=== PATIENT | male | born 1945 | race Caucasian/White ===

== ENCOUNTER 2023-09-21 16:15 | Observation (INO) | payer MEDICARE ==
--- NOTE | 2023-09-21 16:47 | ED ---
General Adult HPI - General Chief complaint: Fall Stated complaint: Fall-Head Injury,Dizziness Time Seen by Provider: 09/21/23 16:17 Source: patient, EMS, RN notes reviewed Mode of arrival: EMS Limitations: no limitations - History of Present Illness Initial comments: Patient is a 78-year-old male present to the emergency department following syncopal episode. Episode occurred prior to arrival. Patient got up and use the restroom. Following this patient was walking out of the restroom when he did have a syncopal episode. Patient believes he was only unresponsive for a couple seconds. Patient did sustain an abrasion to his upper lip. No headache or neck pain. No confusion. No chest pain or dyspnea. No abdominal or back pain. No history of similar symptoms previously. - Related Data Home Medications Medication Instructions Recorded Confirmed lisinopriL [Zestril] 5 mg PO DAILY 09/01/14 09/01/14 Allergies Allergy/AdvReac Type Severity Reaction Status Date / Time No Known Allergies Allergy Verified 09/21/23 16:26 Review of Systems ROS Statement: Those systems with pertinent positive or pertinent negative responses have been documented in the HPI. ROS Other: All systems not noted in ROS Statement are negative. Constitutional: Denies: fever Eyes: Denies: eye pain ENT: Denies: ear pain Respiratory: Denies: cough, dyspnea Cardiovascular: Denies: chest pain Gastrointestinal: Denies: abdominal pain Musculoskeletal: Denies: back pain Past Medical History Past Medical History: Diabetes Mellitus, Hypertension History of Any Multi-Drug Resistant Organisms: None Reported Past Surgical History: No Surgical Hx Reported Past Anesthesia/Blood Transfusion Reactions: Unable to Obtain Additional Past Anesthesia/Blood Transfusion Reaction / Comment(s): pt. has no surgical history Past Psychological History: No Psychological Hx Reported Past Alcohol Use History: Rare Past Drug Use History: None Reported - Past Family History Father Family Medical History: Cancer Additional Family Medical History / Comment(s): prostate cancer Mother Additional Family Medical History / Comment(s): mother of old age at 94 General Exam Limitations: no limitations General appearance: alert, in no apparent distress Head exam: Present: normocephalic Eye exam: Present: EOMI, other (Abnormal pupil on the right which patient states is chronic from previous cataract surgery.) ENT exam: Present: normal oropharynx Neck exam: Present: normal inspection Respiratory exam: Present: normal lung sounds bilaterally Cardiovascular Exam: Present: regular rate, normal rhythm GI/Abdominal exam: Present: soft. Absent: tenderness Extremities exam: Present: normal inspection Neurological exam: Present: alert Psychiatric exam: Present: normal affect, normal mood Skin exam: Present: other (Upper lip with internal laceration 0.5 cm.) Course Vital Signs 09/21/23 09/21/23 16:24 18:16 Temperature 98.1 F 99.2 F Pulse Rate 84 78 Respiratory 18 18 Rate Blood Pressure 134/67 126/70 O2 Sat by Pulse 97 96 Oximetry EKG Findings - EKG Results: EKG: interpreted by ERMD, sinus rhythm, normal axis, normal QRS, normal ST/T Medical Decision Making - Medical Decision Making Was pt. sent in by a medical professional or institution (, PA, AUDIT LEAD, urgent care, hospital, or [facility]...) When possible be specific @ -No Did you speak to anyone other than the patient for history (EMS, parent, family, police, friend...)? What history was obtained from this source @ -No Did you review nursing and triage notes (agree or disagree)? Why? @ -I reviewed and agree with nursing and triage notes Were old charts reviewed (outside hosp., previous admission, EMS record, old EKG, old radiological studies, urgent care reports/EKG's, [facility] records)? Report findings @ -No old charts were reviewed Differential Diagnosis (chest pain, altered mental status, abdominal pain women, abdominal pain men, vaginal bleeding, weakness, fever, dyspnea, syncope, headache, dizziness, GI bleed, back pain, seizure, CVA, palpatations, mental health, musculoskeletal)? @ -Differential Syncope: Valvular disease, hypertrophic cardiomyopathy, pulmonary embolism, tamponade, tachycardia, bradycardia, LA, hypovolemia, hemorrhage, dissection, anemia, intracranial hemorrhage, seizure, hypoglycemia, carbon monoxide poisoning, this is not meant to be an all-inclusive list. EKG interpreted by me (3pts min.). @ -As above X-rays interpreted by me (1pt min.). @ -Chest x-ray shows no acute process CT interpreted by me (1pt min.). @ -CT scan of the brain shows no atrophy U/S interpreted by me (1pt. min.). @ -None done What testing was considered but not performed or refused? (CT, X-rays, U/S, labs)? Why? @ -None What meds were considered but not given or refused? Why? @ -None Did you discuss the management of the patient with other professionals (professionals i.e. , PA, AUDIT LEAD, lab, RT, psych nurse, web content & social media manager, deodorizer operator, teacher, seismology technical officer, case reviewer)? Give summary @ -Sound physician Dr. Jacob, will admit covering Dr. Chung Was smoking cessation discussed for >3mins.? @ -No Was critical care preformed (if so, how long)? @ -No Were there social determinants of health that impacted care today? How? (Homelessness, low income, unemployed, alcoholism, drug addiction, transportation, low edu. Level, literacy, decrease access to med. care, halfway, rehab)? @ -No Was there de-escalation of care discussed even if they declined (Discuss DNR or withdrawal of care, Hospice)? DNR status @ -No What co-morbidities impacted this encounter? (DM, HTN, Smoking, COPD, CAD, Cancer, CVA, ARF, Chemo, Hep., AIDS, mental health diagnosis, sleep apnea, morbid obesity)? @ -None Was patient admitted / discharged? Hospital course, mention meds given and route, prescriptions, significant lab abnormalities, going to OR and other pertinent info. @ -Patient reevaluated. Patient is feeling somewhat dizzy. Patient and family are updated on results and plan. Patient will be admitted. Admission orders written. Undiagnosed new problem with uncertain prognosis? @ -No Drug Therapy requiring intensive monitoring for toxicity (Heparin, Nitro, Insulin, Cardizem)? @ -No Were any procedures done? @ -No Diagnosis/symptom? @ -Syncope, hyponatremia Acute, or Chronic, or Acute on Chronic? @ -Acute, acute Uncomplicated (without systemic symptoms) or Complicated (systemic symptoms)? @ -Default Side effects of treatment? @ -No Exacerbation, Progression, or Severe Exacerbation? @ -No Poses a threat to life or bodily function? How? (Chest pain, USA, LA, pneumonia, PE, COPD, DKA, ARF, appy, cholecystitis, CVA, Diverticulitis, Homicidal, Suicidal, threat to staff... and all critical care pts) @ -No - Lab Data Result diagrams: 09/21/23 17:12 09/21/23 17:12 Lab Results 09/21/23 09/21/23 09/21/23 Range/Units 17:12 17:12 17:12 WBC 16.6 H (3.8-10.6) k/uL RBC 5.31 (4.30-5.90) m/uL Hgb 15.7 (13.0-17.5) gm/dL Hct 47.1 (39.0-53.0) % MCV 88.8 (80.0-100.0) fL MCH 29.5 (25.0-35.0) pg MCHC 33.2 (31.0-37.0) g/dL RDW 13.2 (11.5-15.5) % Plt Count 292 (150-450) k/uL MPV 7.9 Neutrophils % 91 % Lymphocytes % 4 % Monocytes % 4 % Eosinophils % 1 % Basophils % 0 % Neutrophils # 15.0 H (1.3-7.7) k/uL Lymphocytes # 0.6 L (1.0-4.8) k/uL Monocytes # 0.6 (0-1.0) k/uL Eosinophils # 0.1 (0-0.7) k/uL Basophils # 0.1 (0-0.2) k/uL PT 10.5 (10.0-12.5) sec INR 0.9 (<1.2) APTT 21.4 L (22.0-30.0) sec Sodium 130 L (137-145) mmol/L Potassium 4.8 (3.5-5.1) mmol/L Chloride 96 L (98-107) mmol/L Carbon Dioxide 24 (22-30) mmol/L Anion Gap 10 mmol/L BUN 14 (9-20) mg/dL Creatinine 0.72 (0.66-1.25) mg/dL Est GFR (CKD-EPI)AfAm >90 (>60 ml/min/1.73 sqM) Est GFR (CKD-EPI)NonAf >90 (>60 ml/min/1.73 sqM) Glucose 139 H (74-99) mg/dL Calcium 9.5 (8.4-10.2) mg/dL Magnesium 1.6 (1.6-2.3) mg/dL Total Bilirubin 0.8 (0.2-1.3) mg/dL AST 26 (17-59) U/L ALT 23 (4-49) U/L Alkaline Phosphatase 64 (38-126) U/L Troponin I (0.000-0.034) ng/mL Total Protein 7.1 (6.3-8.2) g/dL Albumin 4.3 (3.5-5.0) g/dL 09/21/23 Range/Units 17:12 WBC (3.8-10.6) k/uL RBC (4.30-5.90) m/uL Hgb (13.0-17.5) gm/dL Hct (39.0-53.0) % MCV (80.0-100.0) fL MCH (25.0-35.0) pg MCHC (31.0-37.0) g/dL RDW (11.5-15.5) % Plt Count (150-450) k/uL MPV Neutrophils % % Lymphocytes % % Monocytes % % Eosinophils % % Basophils % % Neutrophils # (1.3-7.7) k/uL Lymphocytes # (1.0-4.8) k/uL Monocytes # (0-1.0) k/uL Eosinophils # (0-0.7) k/uL Basophils # (0-0.2) k/uL PT (10.0-12.5) sec INR (<1.2) APTT (22.0-30.0) sec Sodium (137-145) mmol/L Potassium (3.5-5.1) mmol/L Chloride (98-107) mmol/L Carbon Dioxide (22-30) mmol/L Anion Gap mmol/L BUN (9-20) mg/dL Creatinine (0.66-1.25) mg/dL Est GFR (CKD-EPI)AfAm (>60 ml/min/1.73 sqM) Est GFR (CKD-EPI)NonAf (>60 ml/min/1.73 sqM) Glucose (74-99) mg/dL Calcium (8.4-10.2) mg/dL Magnesium (1.6-2.3) mg/dL Total Bilirubin (0.2-1.3) mg/dL AST (17-59) U/L ALT (4-49) U/L Alkaline Phosphatase (38-126) U/L Troponin I <0.012 (0.000-0.034) ng/mL Total Protein (6.3-8.2) g/dL Albumin (3.5-5.0) g/dL Disposition Clinical Impression: Syncope, Hyponatremia Disposition: ADMITTED IP TO THIS HOSP Is patient prescribed a controlled substance at d/c from ED?: No Time of Disposition: 19:59
[2023-09-21] MEDS: DIPH,PERTUS(ACELL)TETVAC-LF 0.5 ML VIAL IM ONE (17:17)
[2023-09-21 17:41] LABS: Basophils # (A) 0.1 k/uL (0-0.2); Basophils % (A) 0 %; Eosinophils # (A) 0.1 k/uL (0-0.7); Eosinophils % (A) 1 %; HCT 47.1 % (39.0-53.0); HGB 15.7 gm/dL (13.0-17.5); Lymphocytes # (A) 0.6 k/uL (1.0-4.8); Lymphocytes % (A) 4 %; MCH 29.5 pg (25.0-35.0); MCHC 33.2 g/dL (31.0-37.0); MCV 88.8 fL (80.0-100.0); Mean Platelet Volume 7.9; Monocytes # (A) 0.6 k/uL (0-1.0); Monocytes % (A) 4 %; Neutrophils % (A) 91 %; Platelet Count 292 k/uL (150-450); RBC 5.31 m/uL (4.30-5.90); RDW 13.2 % (11.5-15.5); WBC 16.6 k/uL (3.8-10.6)
[2023-09-21 17:54] LABS: INR 0.9 (<1.2); Prothrombin Time 10.5 sec (10.0-12.5)
--- NOTE | 2023-09-21 17:55 | CT ---
EXAMINATION TYPE: CT brain wo con DATE OF EXAM: 09/21/2023 COMPARISON: 09/01/2014 INDICATION: syncope/hit face on floor DLP: 1162.8 mGycm, Automated exposure control for dose reduction was used. CONTRAST: None CT of the brain is performed utilizing 3 mm thick sections through the posterior fossa and 3 mm thick sections through the remaining calvarium. Study is performed within 24 hours of arrival to the hosp ital. No abnormal hyperdensity is present to suggest an acute intracranial hemorrhage. No mass lesion is evident. No acute infarcts are evident. Ventricles and sulci are prominent for the patient age. Paranasal sinuses and mastoid air cells within the [id number] are clear. No acute fractures are evident. Maxillary spine is intact. Nasal bones are intact. IMPRESSION: 1. Atrophy. Follow-up MRI can be performed as clinically indicated
[2023-09-21 17:57] LABS: Partial Thromboplastin Time 21.4 sec (22.0-30.0)
--- NOTE | 2023-09-21 17:59 | XR ---
EXAMINATION TYPE: XR chest 2V DATE OF EXAM: 09/21/2023 COMPARISON: 09/01/2014 INDICATION: Syncope fall TECHNIQUE: Frontal and lateral views of the chest are obtained. FINDINGS: The heart size is normal. The pulmonary vasculature is normal. The lungs are clear. No pneumothorax evident. IMPRESSION: 1. No acute pulmonary process.
[2023-09-21 18:10] LABS: ALT 23 U/L (4-49); African American GFR (CKD) >90 (>60 ml/min/1.73 sqM); Albumin 4.3 g/dL (3.5-5.0); Anion Gap 10 mmol/L; Blood Urea Nitrogen 14 mg/dL (9-20); Calcium 9.5 mg/dL (8.4-10.2); Carbon Dioxide 24 mmol/L (22-30); Chloride 96 mmol/L (98-107); Glucose 139 mg/dL (74-99); Non-African American GFR(CKD) >90 (>60 ml/min/1.73 sqM); Sodium 130 mmol/L (137-145); Total Bilirubin 0.8 mg/dL (0.2-1.3); Total Protein 7.1 g/dL (6.3-8.2)
[2023-09-21 18:15] LABS: AST 26 U/L (17-59); Alkaline Phosphatase 64 U/L (38-126); Potassium 4.8 mmol/L (3.5-5.1)
[2023-09-21 18:16] LABS: Magnesium 1.6 mg/dL (1.6-2.3)
[2023-09-21] MEDS ORDERED: NALOXONE 0.4 MG/ML 1 ML VIAL IV PRN (20:00)
[2023-09-21] MEDS: SODIUM CHLORIDE 0.9% 1,000 ML IV SCH (20:16)
[2023-09-21] MEDS: MECLIZINE 12.5 MG TAB PO STA (20:17)
[2023-09-21] MEDS: ATORVASTATIN 10 MG TAB PO SCH (21:28)
[2023-09-21] MEDS: ACETAMINOPHEN TAB 325 MG TAB PO ONE (23:51)
[2023-09-22 00:23] LABS: Appearance,Urine Clear (Clear); Bilirubin,Urine Negative (Negative); Blood,Urine Negative (Negative); Color,Urine Light Yellow; Glucose,Urine (UA) Negative (Negative); Ketones,Urine 2+ (Negative); Leukocyte Esterase,Urine Negative (Negative); Nitrite,Urine Negative (Negative); PH, Urine 6.5 (5.0-8.0); Protein,Urine Negative (Negative); Specific Gravity,Urine 1.019 (1.001-1.035); Urobilinogen,Urine <2.0 mg/dL (<2.0)
--- NOTE | 2023-09-22 03:00 | P.HPIM ---
History of Present Illness H&P Date: 09/21/23 Patient is a 78-year-old male with a PMH of type II DM, hypertension, hyperlipidemia, who presents to the ED after an episode of syncope and fall. Patient reports that he has been feeling somewhat fatigued all day today and has been experiencing myalgias. He had gotten up out of a chair and was walking to the restroom when he suddenly became lightheaded and lost consciousness, falling forward and hitting his face on the ground. He suffered an upper lip laceration. His heard him fall and immediately came to his side. The patient regained consciousness within a minute or two as per the . No reports of urinary incontinence or shaking movement. The patient also does not recall experiencing chest tightness, shortness of breath, nausea, vomiting, diaphoresis. He has been experiencing some diarrhea throughout the day today without blood or mucus. Denied experiencing headaches or visual disturbances or neck pain. Reports feeling somewhat better at the time of interview. CT brain in the emergency room revealed atrophy with no other acute abnormalities. Chest x-ray was unremarkable. With EKG showing sinus rhythm at [address]/T wave changes noted as reviewed by me. Laboratory evaluation was remarkable for leukocytosis of 16.6 with sodium 130, chloride 96, glucose 139, troponin less than 0.012, and an unremarkable UA. Tmax in the emergency room was 100.5 F with pulse 117. ED documentation reviewed and case discussed with ED provider. Review of systems: Pertinent positives and negatives as discussed in HPI, a complete review of systems was performed and all other systems are negative. Physical examination: Vital signs reviewed General: non toxic, no distress, appears at stated age, normal weight Derm: no unusual rashes/lesions, warm Head: atraumatic, normocephalic, symmetric Eyes: EOMI, no lid lag, anicteric sclera, pupils equal round reactive to light ENT: Nose and ears atraumatic Neck: No cervical lymphadenopathy, trachea midline, supple Mouth: R sided upper lip laceration noted, mucus membranes moist Cardiovascular: S1S2 reg, no murmur, positive dorsalis pedis pulse bilateral, no edema Lungs: CTA bilateral, no rhonchi, no rales, no accessory muscle use Abdominal: soft, nontender to palpation, no guarding Ext: muscle strength 5 out of 5 in all 4 extremities grossly, no gross muscle atrophy, no contractures, Neuro: CN II-XI grossly intact, no gross focal neuro deficits Psych: Alert, oriented, appropriate affect Assessment: SIRS without obvious infectious etiology Hypochloremic hyponatremia Chronic conditions: Type II DM, hypertension, hyperlipidemia Imaging: CT brain in the emergency room revealed atrophy with no other acute abnormalities. Chest x-ray was unremarkable. With EKG showing sinus rhythm at [address]/T wave changes noted as reviewed by me. Data Review: Laboratory evaluation was remarkable for leukocytosis of 16.6 with sodium 130, chloride 96, glucose 139, troponin less than 0.012, and an unremarkable UA. Tmax in the emergency room was 100.5 F with pulse 117. Plan: Check orthostatics Obtain blood cultures Check respiratory viral quad panel Initiate empiric antibiotics with ceftriaxone at this time IV fluids with normal saline 130 cc/h Cardiac monitoring Obtain Echocardiogram Fall precautions Check lactic acid levels Monitor BMP DVT prophylaxis: Lovenox Subq The patient is admitted with an anticipated greater than 2 midnight stay for evaluation of SIRS CODE STATUS: Full Code Discussed with: Patient Anticipated discharge place: Home Past Medical History Past Medical History: Diabetes Mellitus, Hypertension History of Any Multi-Drug Resistant Organisms: None Reported Past Surgical History: No Surgical Hx Reported Past Anesthesia/Blood Transfusion Reactions: Unable to Obtain Additional Past Anesthesia/Blood Transfusion Reaction / Comment(s): pt. has no surgical history Past Psychological History: No Psychological Hx Reported Past Alcohol Use History: Rare Past Drug Use History: None Reported - Past Family History Father Family Medical History: Cancer Additional Family Medical History / Comment(s): prostate cancer Mother Additional Family Medical History / Comment(s): mother of old age at 94 Medications and Allergies Home Medications Medication Instructions Recorded Confirmed Type lisinopriL [Zestril] 5 mg PO DAILY 09/01/14 09/21/23 History Multivitamins, Thera [Multivitamin 1 tab PO DAILY 09/21/23 09/21/23 History (formulary)] Rosuvastatin Calcium 5 mg PO HS 09/21/23 09/21/23 History metFORMIN HCL ER [Glucophage XR] 1,000 mg PO W/BRKFST 09/21/23 09/21/23 History metFORMIN HCL ER [Glucophage XR] 500 mg PO W/SUPPER 09/21/23 09/21/23 History Allergies Allergy/AdvReac Type Severity Reaction Status Date / Time No Known Allergies Allergy Verified 09/21/23 20:20 Physical Exam Vitals: Vital Signs Temp Pulse Resp BP Pulse Ox 09/21/23 22:00 99.5 F 50 L 16 130/55 98 09/21/23 18:16 99.2 F 78 18 126/70 96 09/21/23 16:24 98.1 F 84 18 134/67 97 Intake and Output 09/21/23 09/21/23 09/22/23 14:59 22:59 06:59 Other: Weight 73.482 kg Results CBC & Chem 7: 09/22/23 03:26 09/21/23 17:12 Labs: Abnormal Lab Results - Last 24 Hours (Table) 09/21/23 09/21/23 09/21/23 Range/Units 17:12 17:12 17:12 WBC 16.6 H (3.8-10.6) k/uL Neutrophils # 15.0 H (1.3-7.7) k/uL Lymphocytes # 0.6 L (1.0-4.8) k/uL APTT 21.4 L (22.0-30.0) sec Sodium 130 L (137-145) mmol/L Chloride 96 L (98-107) mmol/L Glucose 139 H (74-99) mg/dL
[2023-09-22 03:58] LABS: Basophils % (A) 0 %; Eosinophils % (A) 0 %; HGB 13.7 gm/dL (13.0-17.5); Lymphocytes # (A) 0.5 k/uL (1.0-4.8); Lymphocytes % (A) 5 %; MCH 29.1 pg (25.0-35.0); MCHC 32.6 g/dL (31.0-37.0); MCV 89.1 fL (80.0-100.0); Mean Platelet Volume 7.4; Monocytes # (A) 0.3 k/uL (0-1.0); Monocytes % (A) 3 %; Neutrophils # (A) 8.9 k/uL (1.3-7.7); Neutrophils % (A) 91 %; Platelet Count 233 k/uL (150-450); RBC 4.71 m/uL (4.30-5.90); RDW 12.9 % (11.5-15.5); WBC 9.8 k/uL (3.8-10.6)
[2023-09-22 04:18] LABS: ALT 20 U/L (4-49); AST 20 U/L (17-59); African American GFR (CKD) >90 (>60 ml/min/1.73 sqM); Albumin 3.4 g/dL (3.5-5.0); Albumin/Globulin Ratio 1.4; Alkaline Phosphatase 53 U/L (38-126); Anion Gap 9 mmol/L; Blood Urea Nitrogen 14 mg/dL (9-20); Calcium 8.4 mg/dL (8.4-10.2); Carbon Dioxide 20 mmol/L (22-30); Chloride 102 mmol/L (98-107); Globulin 2.5 g/dL; Glucose 133 mg/dL (74-99); Non-African American GFR(CKD) >90 (>60 ml/min/1.73 sqM); Potassium 4.1 mmol/L (3.5-5.1); Sodium 131 mmol/L (137-145); Total Bilirubin 0.6 mg/dL (0.2-1.3); Total Protein 5.9 g/dL (6.3-8.2)
[2023-09-22 05:40] LABS: Glucose,Whole Blood 116 mg/dL (70-110)
[2023-09-22 07:07] LABS: Glucose,Whole Blood 109 mg/dL (70-110)
[2023-09-22] MEDS ORDERED: metFORMIN 500 MG TAB PO SCH ×2 (07:30→17:30)
[2023-09-22] MEDS: INSULIN ASPART (NovoLOG) 100 UNIT/ML VIAL SQ SCH (08:17)
[2023-09-22] MEDS: lisinopriL 5 MG TAB PO SCH (08:35)
[2023-09-22] MEDS: MULTIVITAMINS, THERA 1 EACH TAB PO SCH (08:36)
[2023-09-22] MEDS: ENOXAPARIN 40 MG/0.4 ML SYRINGE SQ SCH (08:52)
[2023-09-22 12:12] LABS: Glucose,Whole Blood 147 mg/dL (70-110)
--- NOTE | 2023-09-22 14:41 | P.PN ---
Subjective Progress Note Date: 09/22/23 Hospital course: Patient is a pleasant 78-year-old male with a past medical history of hypertension, hyperlipidemia, and type II jsk-hofsltl-taonfbltw diabetes wade litus. He presented to the emergency department on 09/21/2023 secondary to syncopal episode. Patient reported he got out of bed and while walking to the restroom he became very dizzy/lightheaded falling face first onto the ground. Patient reports he awoken full of blood from splitting his lip. Patient's reports that she heard her fall and ran to his side. She reports he was extremely diaphoretic and was unable to get up on his own stating he felt extremely weak. He denied having any headache, changes in vision or hearing, dysphagia, difficulties or changes in his speech, chest pain or palpitations, shortness of breath, cough or congestion, nausea or vomiting, or experiencing any numbness/tingling/weakness/swelling in his extremities. He denies having a syncopal episode in the past. He does admit to daily diarrhea reports approximately twice per day after being started on metformin quite sometime ago but denies any changes in or frequency of these bowel movements. Patient does report a recent trip to [place] otherwise denies any long car rides or trips and denies any recent illnesses or known ill contacts. Patient reports currently being free from any complaints other than pain to his upper lip. He underwent evaluation in the emergency department. Upon arrival vital signs showing blood pressure 126/70, heart rate 117, respiratory rate 20, temp 100.5 F, and SpO2 of 95% on room air. EKG was completed showing normal sinus rhythm at 91 bpm with T wave inversion in lead aVL otherwise normal findings. CT brain completed showing mild atrophy otherwise negative for acute intracranial process. Chest x-ray negative for acute cardiopulmonary process. Labs were completed and reviewed. CBC showing leukocytosis with WBC count of 16.6. Coagulation profile showing low PTT of 21.4. BMP showing hyponatremia with sodium of 130 and hypochloremia with chloride of 96. Blood glucose was 139. Magnesium slightly low at 1.6. Liver profile unremarkable. Troponin was negative at less than 0.012. Flu Elisha A, influenza B, RSV, and COVID were negative. Urinalysis negative for infection. Patient was admitted under our services at this time. Troponins were trended overnight all negative at less than 0.012 x 3 draws. D-dimer was completed and negative at 0.34. Physical exam: Patient seen and fully evaluated at the bedside this morning. He is currently free from any complaints except pain to his upper lip. Patient has moderate swelling and dried blood noted on upper lip. No noted active bleeding. Patient denies chipping any teeth or having any loose teeth from syncopal episode. He currently denies having headache, lightheadedness, dizziness, chest pain, palpitations, shortness of breath, or experiencing any numbness/tingling/weakness in his extremities. Vital signs reviewed and stable. General: Nontoxic, no distress and appears stated age. Derm: Skin warm and dry, normal coloration for ethnicity. Head: Atraumatic, normocephalic and symmetric. Eyes: EOMs intact, no lid lag, and anicteric sclera Mouth: no lip lesions, mucus membranes moist Cardiovascular: regular rate and rhythm with normal S1S2, no murmur, positive posterior tibial pulses bilaterally, and cap refill < 2 seconds. Lungs: Respirations even, regular, and unlabored on room air. Lungs CTA bilaterally, no rhonchi, no rales, no wheezing, and no accessory muscle usage. Abdominal: soft, nontender to palpation, no guarding, no appreciable organomegaly Ext: ROM intact. No gross muscle atrophy, no edema, no contractures Neuro: Speech clear, face symmetrical and CN II-XII grossly intact with no noted focal neuro deficits Psych: Alert and oriented to person, place, time, and situation. Appropriate and pleasant affect. Assessment and Plan of Care: Syncopal episode, unknown cause Mild hyponatremia -Check orthostatic vitals -Telemetry monitoring -Echocardiogram -Cardiology consulted, appreciate recommendations -Neurochecks and fall precautions in place -Troponins trended all negative at less than 0.012 x 3 draws, ordered stat D- dimer which also resulted negative at 0.34. -Cardiac diet -Echocardiogram -Continue with gentle IV fluid hydration with 0.9% normal saline at 100 cc/h. Leukocytosis upon arrival, resolved Low-grade fever and tachycardia upon arrival, resolved Type II [id number]-ykejrlhwb diabetes mellitus Hold metformin and continue glycemic protocol with NovoLog sliding scale. Obtain hemoglobin A1c. Hypertension Continue daily medication regimen with lisinopril 5 mg daily. Hyperlipidemia Continue daily medication regimen with atorvastatin 10 mg nightly. Data and imaging reviewed: Morning labs reviewed showing resolution of previous leukocytosis with previous WBC count of 16.6 decreasing down to 9.8 this morning. BMP showing slight improvement of sodium increasing from 130 to 131 and mild hypocarbia with bicarb of 20. Lactic acid normal findings at 1.1. Influenza A, influenza B, RSV, and COVID PCR's were negative. Urinalysis negative for infection. D-dimer obtained and was negative at 0.34. Vital signs reviewed. Blood pressure 133/80, heart rate 85, respiratory rate 22, temp 97.9 F, and SpO2 of 96% on room air. CODE STATUS: Full code DVT prophylaxis: Lovenox Anticipated discharge date: Likely 24 to [address]: Home Patient was seen independently by Nurse Pracitioner. This document was prepared using [email or web address] dictation software. Please allow for errors in heel padder, while rare they do occur. I reviewed the documentation as provided by the ARNOLD above, who is the original author of this note. I agree with the documented assessment and plan, with the following changes: none Objective - Vital Signs Vital signs: Vital Signs Temp 97.9 F 09/22/23 08:32 Pulse 85 09/22/23 08:32 Resp 22 09/22/23 08:32 BP 133/80 09/22/23 08:32 Pulse Ox 96 09/22/23 08:32 FiO2 Intake & Output 09/21/23 09/22/23 09/22/23 18:59 06:59 18:59 Weight 73.482 kg - Labs CBC & Chem 7: 09/22/23 03:26 09/22/23 03:26 Labs: Abnormal Lab Results - Last 24 Hours (Table) 09/21/23 09/21/23 09/21/23 Range/Units 17:12 17:12 17:12 WBC 16.6 H (3.8-10.6) k/uL Neutrophils # 15.0 H (1.3-7.7) k/uL Lymphocytes # 0.6 L (1.0-4.8) k/uL APTT 21.4 L (22.0-30.0) sec Sodium 130 L (137-145) mmol/L Chloride 96 L (98-107) mmol/L Carbon Dioxide (22-30) mmol/L Creatinine (0.66-1.25) mg/dL Glucose 139 H (74-99) mg/dL POC Glucose (mg/dL) (70-110) mg/dL Total Protein (6.3-8.2) g/dL Albumin (3.5-5.0) g/dL Urine Ketones (Negative) 09/21/23 09/22/23 09/22/23 Range/Units 23:50 03:26 03:26 WBC (3.8-10.6) k/uL Neutrophils # 8.9 H (1.3-7.7) k/uL Lymphocytes # 0.5 L (1.0-4.8) k/uL APTT (22.0-30.0) sec Sodium 131 L (137-145) mmol/L Chloride (98-107) mmol/L Carbon Dioxide 20 L (22-30) mmol/L Creatinine 0.63 L (0.66-1.25) mg/dL Glucose 133 H (74-99) mg/dL POC Glucose (mg/dL) (70-110) mg/dL Total Protein 5.9 L (6.3-8.2) g/dL Albumin 3.4 L (3.5-5.0) g/dL Urine Ketones 2+ H (Negative) 09/22/23 Range/Units 05:37 WBC (3.8-10.6) k/uL Neutrophils # (1.3-7.7) k/uL Lymphocytes # (1.0-4.8) k/uL APTT (22.0-30.0) sec Sodium (137-145) mmol/L Chloride (98-107) mmol/L Carbon Dioxide (22-30) mmol/L Creatinine (0.66-1.25) mg/dL Glucose (74-99) mg/dL POC Glucose (mg/dL) 116 H (70-110) mg/dL Total Protein (6.3-8.2) g/dL Albumin (3.5-5.0) g/dL Urine Ketones (Negative)
[2023-09-22] MEDS ORDERED: HYDROcodone/APAP 5-325MG 1 EACH TAB PO PRN (16:10)
[2023-09-22] MEDS: ACETAMINOPHEN TAB 325 MG TAB PO PRN (16:26)
[2023-09-22 16:52] LABS: Glucose,Whole Blood 181 mg/dL (70-110)
[2023-09-22 20:35] LABS: Glucose,Whole Blood 159 mg/dL (70-110)
[2023-09-23 06:30] LABS: Glucose,Whole Blood 114 mg/dL (70-110)
--- NOTE | 2023-09-23 07:03 | CA ---
Transthoracic Echo Report Name: Indio Levin Age: 78 Gender: M : 1945 Exam Date: 09/22/2023 13:41 Exam Location: [facility] Ht (in): 68 Wt (lb): 162 Ordering Physician: Chris Jacob MD Attending/Referring Phys: Basin Cleaner Divine Pearson RDCS Procedure CPT: Indications: Syncope Cardiac Hx: Technical Quality: Fair Contrast 1: Total Dose (mL): Contrast 2: Total Dose (mL): MEASUREMENTS (Male / Female) Normal Values 2D ECHO LV Diastolic Diameter PLAX 5.0 cm 4.2 - 5.9 / 3.9 - 5.3 cm LV Systolic Diameter PLAX 2.5 cm IVS Diastolic Thickness 1.0 cm 0.6 - 1.0 / 0.6 - 0.9 cm LVPW Diastolic Thickness 1.2 cm 0.6 - 1.0 / 0.6 - 0.9 cm LV Relative Wall Thickness 0.4 RV Internal Dim ED PLAX 1.8 cm LA Systolic Diameter LX 3.5 cm 3.0 - 4.0 / 2.7 - 3.8 cm LV Diastolic Volume MOD BP 52.2 cm??? 67 - 155 / 56 - 104 cm??? LV Systolic Volume MOD BP 21.1 cm??? 22 - 58 / 19 - 49 cm??? LV Ejection Fraction MOD BP 59.5 % >= 55 % LV Cardiac Index MOD BP 1944.0 cm???/min???m??? LV Diastolic Volume MOD 4C 48.5 cm??? LV Systolic Volume MOD 4C 18.7 cm??? LV Ejection Fraction MOD 4C 61.4 % LV Cardiac Index MOD 4C 1861.6 cm???/min???m??? LV Diastolic Length 4C 6.8 cm LV Systolic Length 4C 5.8 cm LV Diastolic Volume MOD 2C 54.8 cm??? LV Systolic Volume MOD 2C 22.9 cm??? LV Ejection Fraction MOD 2C 58.3 % LV Cardiac Index MOD 2C 2000.1 cm???/min???m??? LV Diastolic Length 2C 7.0 cm LV Systolic Length 2C 5.3 cm LA Volume 38.0 cm??? 18 - 58 / 22 - 52 cm??? LA Volume Index 20.1 cm???/m??? 16 - 28 cm???/m??? M-MODE Aortic Root Diameter MM 2.8 cm LA Systolic Diameter MM 3.7 cm LA Ao Ratio MM 1.3 AV Cusp Separation MM 1.7 cm DOPPLER MV Area PHT 3.8 cm??? Mitral E Point Velocity 73.5 cm/s Mitral A Point Velocity 70.8 cm/s Mitral E to A Ratio 1.0 MV Deceleration Time 198.1 ms FINDINGS Left Ventricle Left ventricular ejection fraction is estimated at 55-60 %. Normal Left ventricular size, wall thickness, systolic function with no obvious regional wall motion abnormalities. Normal Left ventricular diastolic filling pattern. Right Ventricle Normal right ventricular size and function. Unable to estimate the right ventricular systolic pressure. Right Atrium Normal right atrial size. Left Atrium Normal left atrial size. Mitral Valve Structurally normal mitral valve. Trace mitral regurgitation. Aortic Valve Trileaflet aortic valve. No aortic stenosis. No aortic regurgitation. Tricuspid Valve Structurally normal tricuspid valve. Trace tricuspid regurgitation. Pulmonic Valve Structurally normal pulmonic valve. Trace pulmonic regurgitation. Pericardium No pericardial or pleural effusion. Aorta Normal size aortic root and proximal ascending aorta. CONCLUSIONS Technically difficult study Normal LV systolic function Previewed by: Dr. Bib Simon MD (Electronically Signed) Final Date: 23 Sep 2023 07:02
[2023-09-23] MEDS ORDERED: REGADENOSON 0.4 MG/5 ML SYRINGE IV PRN (07:38)
[2023-09-23] MEDS ORDERED: CAFFEINE CITRATE 60 MG/3 ML VIAL IV PRN (07:38)
[2023-09-23] MEDS ORDERED: AMINOPHYLLINE 500 MG/20 ML VIAL IV PRN (07:38)
--- NOTE | 2023-09-23 11:28 | NM ---
EXAMINATION TYPE: NM stress lexiscan cardiolite DATE OF EXAM: 09/23/2023 COMPARISON: NONE HISTORY: Chest pain TECHNIQUE: After the intravenous administration of 10.2 mCi Tc 99m Sestamibi - Cardiolite resting SP ECT images acquired 45 minutes post injection. At peak stress 25.2 mCi Tc 99m Sestamibi - Stress images obtained 60 minutes post injection The patient was stressed with 0.4mg Lexiscan. FINDINGS: No fixed defects are evident No reversible stress defects on Spect images Wall motion is normal Ejection fraction is calculated to be 75 %. IMPRESSION: 1. No stress induced ischemic change
[2023-09-23 12:36] LABS: Glucose,Whole Blood 112 mg/dL (70-110)
--- NOTE | 2023-09-23 13:28 | P.CRDCN ---
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 We have been asked to evaluate the patient for syncope. Patient gives history that he was getting up from his bed to the bathroom and felt faint then fell down hit the ground injuring his mouth area. He states he was walking and all of a sudden just went down. There was no witnesses at home with him. He states he was not knocked out for very long. He feels like when he hit the floor that woke him back up. He denies having any chest pain, no fluttering in his chest, no lightheadedness or dizziness. He states he had a similar syncopal episode 9 years ago. He was seen in the office by Dr. Topher Metzger in 2014 for syncope. He had an echocardiogram at that time that revealed a normal EF. Holter monitor was also done that revealed no significant tachycardia or bradycardia arrhythmias. Patient is not currently following with a hatch supervisor. Orthostatics positive at almost 30 point difference. EKG sinus rhythm with no acute ST-T wave changes Chest x-ray: No acute process Initial WBC 16.6 now 9.8. Hemoglobin 13.7. Sodium 131, potassium 4.1. Creatinine 0.63. Troponin negative x 3. Urinalysis 2+ ketones. Blood sugar 139. Influenza A, influenza B, RSV, COVID-19 not detected. Home cardiac medications: Lisinopril 5 mg daily, Crestor 5 mg at bedtime Echocardiogram reveals technically difficult study. Normal LV systolic function. Lexiscan stress test reveals no stress-induced ischemic change. Review Of Systems: At the time of my exam: CONSTITUTIONAL: Denies fever or chills. HEENT: Denies blurred vision, vision changes, or eye pain. Denies hemoptysis CARDIOVASCULAR: Denies chest pain. Denies orthopnea. Denies PND. Denies palpitations RESPIRATORY: Denies shortness of breath. GASTROINTESTINAL: Denies abdominal pain. Denies nausea or vomiting. HEMATOLOGIC: Denies bleeding disorders. GENITOURINARY: Denies any blood in urine. SKIN: Denies pruitis. Denies rash. Physical examination: Gen: This is a 78-year-old male in no acute distress VS: reviewed HEENT: Head is atraumatic, normocephalic. Pupils equal, round. Sclerae is anicteric. NECK: Supple. No JVD. LUNGS: Clear to auscultation. No wheezes or rhonchi. No intercostal retractions. HEART: Regular rate and rhythm. No murmur. ABDOMEN: Soft No tenderness. EXTREMITIES: No pedal edema. No calf tenderness. NEUROLOGICAL: Patient is awake, alert and oriented x3. Assessment: Syncope most likely vasovagal Normal Lexiscan stress test Diabetes mellitus type 2 Hypertension Hyperlipidemia Plan: Resume patient's home cardiac medications Orthostatic vital signs Monitor patient overnight and plan for discharge tomorrow Obtain 2-D echocardiogram and Doppler study to assess cardiac structure and function Further recommendations to follow based upon clinical course Thank you kindly for this consultation. Nurse practitioner note has been reviewed, I agree with documented findings and plan of care. Patient was seen and examined. Past Medical History Past Medical History: Diabetes Mellitus, Hypertension History of Any Multi-Drug Resistant Organisms: None Reported Past Surgical History: No Surgical Hx Reported Past Anesthesia/Blood Transfusion Reactions: Unable to Obtain Additional Past Anesthesia/Blood Transfusion Reaction / Comment(s): pt. has no surgical history Past Psychological History: No Psychological Hx Reported Smoking Status: Former smoker Past Alcohol Use History: Rare Additional Past Alcohol Use History / Comment(s): pt. quit smoking in 1984 Past Drug Use History: None Reported - Past Family History Father Family Medical History: Cancer Additional Family Medical History / Comment(s): prostate cancer Mother Additional Family Medical History / Comment(s): mother of old age at 94 Medications and Allergies Home Medications Medication Instructions Recorded Confirmed Type lisinopriL [Zestril] 5 mg PO DAILY 09/01/14 09/21/23 History Multivitamins, Thera [Multivitamin 1 tab PO DAILY 09/21/23 09/21/23 History (formulary)] Rosuvastatin Calcium 5 mg PO HS 09/21/23 09/21/23 History metFORMIN HCL ER [Glucophage XR] 1,000 mg PO W/BRKFST 09/21/23 09/21/23 History metFORMIN HCL ER [Glucophage XR] 500 mg PO W/SUPPER 09/21/23 09/21/23 History Allergies Allergy/AdvReac Type Severity Reaction Status Date / Time No Known Allergies Allergy Verified 09/21/23 20:20 Physical Exam Vitals: Vital Signs Temp Pulse Pulse Resp BP BP Pulse Ox 09/23/23 02:41 98.0 F 62 15 132/75 95 09/22/23 20:00 84 16 09/22/23 18:55 98.3 F 84 16 151/79 94 L 09/22/23 17:00 98.8 F 95 16 149/75 93 L 09/22/23 16:31 97.9 F 09/22/23 16:30 94 18 95 09/22/23 14:00 137/78 09/22/23 12:00 124 H 09/22/23 11:11 135/75 09/22/23 11:00 98.6 F 89 20 135/75 94 L 09/22/23 08:32 97.9 F 85 22 133/80 96 Intake and Output 09/22/23 09/23/23 09/23/23 22:59 06:59 14:59 Other: Voiding Method Toilet # Voids 1 2 Weight 73.482 kg Results 09/22/23 03:26 09/22/23 03:26 Current Medications Generic Name Dose Route Start Last Admin Trade Name Freq PRN Reason Stop Dose Admin Acetaminophen 650 mg 09/22/23 16:10 09/22/23 16:26 Acetaminophen Tab 325 Mg Tab PO 650 mg Q6HR PRN Administration Mild Pain or Fever > 100.5 Hydrocodone Bitart/Acetaminophen 1 each 09/22/23 16:10 Hydrocodone/Apap 5-325mg 1 Each Tab PO Q4HR PRN Moderate Pain (Scale 4 to 6) Atorvastatin Calcium 10 mg 09/21/23 21:30 09/22/23 20:55 Atorvastatin 10 Mg Tab PO 10 mg HS NANCY Administration Enoxaparin Sodium 40 mg 09/22/23 09:00 09/22/23 08:52 Enoxaparin 40 Mg/0.4 Ml Syringe SQ 40 mg DAILY NANCY Administration Sodium Chloride 1,000 mls @ 100 mls/hr 09/21/23 20:00 09/23/23 04:35 Saline 0.9% IV 100 mls/hr .Q10H NANCY Administration Ceftriaxone Sodium 2 gm/ 50 mls @ 100 mls/hr 09/23/23 04:00 09/23/23 04:35 Sodium Chloride IVPB 100 mls/hr Q24H NANCY Administration Protocol Insulin Aspart 0 unit 09/22/23 07:30 09/23/23 06:31 Insulin Aspart (Novolog) 100 Unit/Ml Vial SQ Not Given ACHS [facility] Protocol Lisinopril 5 mg 09/22/23 09:00 09/22/23 08:35 Lisinopril 5 Mg Tab PO 5 mg DAILY NANCY Administration Multivitamins 1 each 09/22/23 09:00 09/22/23 08:36 Multivitamins, Thera 1 Each Tab PO 1 each DAILY NANYC Administration Naloxone HCl 0.2 mg 09/21/23 20:00 Naloxone 0.4 Mg/Ml 1 Ml Vial IV Q2M PRN Opioid Reversal Intake and Output 09/22/23 09/23/23 09/23/23 22:59 06:59 14:59 Other: Voiding Method Toilet # Voids 1 2 Weight 73.482 kg 09/22/23 03:26 09/22/23 03:26
--- NOTE | 2023-09-23 16:42 | P.PN ---
Subjective Progress Note Date: 09/23/23 Pt has no new complaints. Underwent stress test today which was negative. Pt had +orthostatic vitals today. Gen: In NAD, non-toxic HEENT: normocephalic, atraumatic, hearing acuity is intant, mucous membranes moist CVS: perfusing all extremities well, no pitting edema, Respiratory: symmetric chest expansion, no accessory muscle use, GI: soft, NTTP, ND, : no suprapubic tenderness, no CVA tenderness MSK/Derm: no rashes, cyanosis Neuro: CN II-XII intact, no motor weakness, Psych: cooperative, euthymic mood, judgment and insight is intact Hospital course: Patient is a pleasant 78-year-old male with a past medical history of hypertension, hyperlipidemia, and type II [id number]-[id number] diabetes mellitus. He presented to the emergency department on 09/21/2023 secondary to syncopal episode. Patient reported he got out of bed and while walking to the restroom he became very dizzy/lightheaded falling face first onto the ground. Patient reports he awoken full of blood from splitting his lip. Patient's reports that she heard her fall and ran to his side. She reports he was extremely diaphoretic and was unable to get up on his own stating he felt extremely weak. He denied having any headache, changes in vision or hearing, dysphagia, difficulties or changes in his speech, chest pain or palpitations, shortness of breath, cough or congestion, nausea or vomiting, or experiencing any numbness/tingling/weakness/swelling in his extremities. He denies having a syncopal episode in the past. He does admit to daily diarrhea reports approximately twice per day after being started on metformin quite sometime ago but denies any changes in or frequency of these bowel movements. Patient does report a recent trip to [place] otherwise denies any long car rides or trips and denies any recent illnesses or known ill contacts. Patient reports currently being free from any complaints other than pain to his upper lip. He underwent evaluation in the emergency department. Upon arrival vital signs showing blood pressure 126/70, heart rate 117, respiratory rate 20, temp 100.5 F, and SpO2 of 95% on room air. EKG was completed showing normal sinus rhythm at 91 bpm with T wave inversion in lead aVL otherwise normal findings. CT brain completed showing mild atrophy otherwise negative for acute intracranial process. Chest x-ray negative for acute cardiopulmonary process. Labs were completed and reviewed. CBC showing leukocytosis with WBC count of 16.6. Coagulation profile showing low PTT of 21.4. BMP showing hyponatremia with sodium of 130 and hypochloremia with chloride of 96. Blood glucose was 139. Magnesium slightly low at 1.6. Liver profile unremarkable. Troponin was negative at less than 0.012. Flu Elisha A, influenza B, RSV, and COVID were negative. Urinalysis negative for infection. Patient was admitted under our services at this time. Troponins were trended overnight all negative at less than 0.012 x 3 draws. D-dimer was completed and negative at 0.34. Assessment and Plan of Care: Syncopal episode, unknown cause Mild hyponatremia -Check orthostatic vitals are positive, repeat tomorrow morning -Telemetry monitoring -Echocardiogram shows an ejection fraction of 55 to 60% with no wall motion abnormalities. -Cardiology consulted, appreciate recommendations, underwent stress test today which was negative -Neurochecks and fall precautions in place -Continue with gentle IV fluid hydration with 0.9% normal saline at 100 cc/h. -Event monitor on discharge Type II aed-orulntz-rmrfaxxak diabetes mellitus Hold metformin and continue glycemic protocol with NovoLog sliding scale. Obtain hemoglobin A1c. Hypertension Continue daily medication regimen with lisinopril 5 mg daily. Hyperlipidemia Continue daily medication regimen with atorvastatin 10 mg nightly. Leukocytosis upon arrival, resolved Low-grade fever and tachycardia upon arrival, resolved CODE STATUS: Full code DVT prophylaxis: Lovenox This document was prepared using [employer] dictation software. Please allow for errors in endoscopy rn, while rare they do occur. Objective - Vital Signs Vital signs: Vital Signs Temp 98.6 F 09/23/23 14:06 Pulse 89 09/23/23 14:06 Resp 14 09/23/23 14:06 BP 147/74 09/23/23 14:06 Pulse Ox 96 09/23/23 14:06 FiO2 Intake & Output 09/22/23 09/23/23 09/23/23 18:59 06:59 18:59 Weight 73.482 kg Other: Voiding Method Toilet Toilet # Voids 2 2 # Bowel Movements 1 - Labs CBC & Chem 7: 09/22/23 03:26 09/22/23 03:26 Labs: Abnormal Lab Results - Last 24 Hours (Table) 09/22/23 09/22/23 09/23/23 Range/Units 16:51 20:34 06:29 POC Glucose (mg/dL) 181 H 159 H 114 H (70-110) mg/dL 09/23/23 Range/Units 12:35 POC Glucose (mg/dL) 112 H (70-110) mg/dL Microbiology - Last 24 Hours (Table) 09/22/23 03:45 Blood Culture - Preliminary Blood 09/22/23 03:26 Blood Culture - Preliminary Blood
[2023-09-23 17:29] LABS: Glucose,Whole Blood 139 mg/dL (70-110)
[2023-09-23 20:12] LABS: Glucose,Whole Blood 106 mg/dL (70-110)
[2023-09-24 05:40] LABS: Glucose,Whole Blood 115 mg/dL (70-110)
[2023-09-24 08:57] VITALS: BP 160/79; PULSE 78; RESP 18; TEMP 98.1
--- NOTE | 2023-09-24 09:41 | P.PN ---
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 We have been asked to evaluate the patient for syncope. Patient gives history that he was getting up from his bed to the bathroom and felt faint then fell down hit the ground injuring his mouth area. He states he was walking and all of a sudden just went down. There was no witnesses at home with him. He states he was not knocked out for very long. He feels like when he hit the floor that woke him back up. He denies having any chest pain, no fluttering in his chest, no lightheadedness or dizziness. He states he had a similar syncopal episode 9 years ago. He was seen in the office by Dr. Topher Metzger in 2014 for syncope. He had an echocardiogram at that time that revealed a normal EF. Holter monitor was also done that revealed no significant tachycardia or bradycardia arrhythmias. 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 Orthostatics positive at almost 30 point difference. EKG sinus rhythm with no acute ST-T wave changes Chest x-ray: No acute process Initial WBC 16.6 now 9.8. Hemoglobin 13.7. Sodium 131, potassium 4.1. Creatinine 0.63. Troponin negative x 3. Urinalysis 2+ ketones. Blood sugar 139. Influenza A, influenza B, RSV, COVID-19 not detected. Home cardiac medications: Lisinopril 5 mg daily, Crestor 5 mg at bedtime Echocardiogram reveals technically difficult study. Normal LV systolic function. Lexiscan stress test reveals no stress-induced ischemic change. 09/23 Patient is seen today in follow-up. Patient underwent Lexiscan stress test which was negative. Echocardiogram as above. Patient has had no further episodes of syncope, denies lightheadedness or dizziness. Repeat orthostatic vital signs are improved and negative. Blood pressure 160/79, heart rate 78. Pulse ox 95% on room air. Physical examination: Gen: This is a 78-year-old male in no acute distress VS: reviewed HEENT: Head is atraumatic, normocephalic. Pupils equal, round. Sclerae is anicteric. NECK: Supple. No JVD. LUNGS: Clear to auscultation. No wheezes or rhonchi. No intercostal retractions. HEART: Regular rate and rhythm. No murmur. ABDOMEN: Soft No tenderness. EXTREMITIES: No pedal edema. No calf tenderness. NEUROLOGICAL: Patient is awake, alert and oriented x3. Assessment: Syncope most likely vasovagal Normal Lexiscan stress test Diabetes mellitus type 2 Hypertension Hyperlipidemia Plan: Continue patient's home cardiac medications 30-day event monitor to rule out arrhythmia Patient is cleared for discharge and may follow-up with Dr. Simon in 1 month. Nurse practitioner note has been reviewed, I agree with documented findings and plan of care. Patient was seen and examined. Objective - Vital Signs Vital signs: Vital Signs Temp 98.1 F 09/24/23 07:00 Pulse 78 09/24/23 07:00 Resp 18 09/24/23 07:00 BP 160/79 09/24/23 07:00 Pulse Ox 95 09/24/23 02:13 FiO2 Intake & Output 09/23/23 09/24/23 09/24/23 18:59 06:59 18:59 Other: Voiding Method Toilet Toilet # Voids 2 1 # Bowel Movements 1 - Labs CBC & Chem 7: 09/22/23 03:26 09/22/23 03:26 Labs: Abnormal Lab Results - Last 24 Hours (Table) 09/23/23 09/23/23 09/24/23 Range/Units 12:35 17:28 05:38 POC Glucose (mg/dL) 112 H 139 H 115 H (70-110) mg/dL Microbiology - Last 24 Hours (Table) 09/22/23 03:45 Blood Culture - Preliminary Blood 09/22/23 03:26 Blood Culture - Preliminary Blood
--- NOTE | 2023-09-24 15:40 | P.DS ---
Providers Date of admission: 09/21/23 20:01 Expected date of discharge: 09/24/23 Attending physician: Chris Jacob MD Consults: 09/22/23 14:12 Consult Physician Routine Consulting Provider: Bib Simon Consult Reason/Comments: syncope Do you want consulting provider notified?: Yes Primary care physician: Bennie Chung [facility] Course: Syncopal episode, unknown cause Mild hyponatremia Type II jdu-iehkuxr-aekiimweq diabetes mellitus Hypertension Hyperlipidemia Leukocytosis upon arrival, resolved Low-grade fever and tachycardia upon arrival, resolved Gen: In NAD, non-toxic HEENT: normocephalic, atraumatic, hearing acuity is intant, mucous membranes moist CVS: perfusing all extremities well, no pitting edema, Respiratory: symmetric chest expansion, no accessory muscle use, GI: soft, NTTP, ND, : no suprapubic tenderness, no CVA tenderness MSK/Derm: no rashes, cyanosis Neuro: CN II-XII intact, no motor weakness, Psych: cooperative, euthymic mood, judgment and insight is intact Hospital course: Patient is a pleasant 78-year-old male with a past medical history of hypertension, hyperlipidemia, and type II sgo-nhbfcxx-kinvdbtgu diabetes mellitus. He presented to the emergency department on 09/21/2023 secondary to syncopal episode. Patient reported he got out of bed and while walking to the restroom he became very dizzy/lightheaded falling face first onto the ground. Patient reports he awoken full of blood from splitting his lip. Patient's reports that she heard her fall and ran to his side. She reports he was extremely diaphoretic and was unable to get up on his own stating he felt extremely weak. He denied having any headache, changes in vision or hearing, dysphagia, difficulties or changes in his speech, chest pain or palpitations, shortness of breath, cough or congestion, nausea or vomiting, or experiencing any numbness/tingling/weakness/swelling in his extremities. He denies having a syncopal episode in the past. He does admit to daily diarrhea reports approximately twice per day after being started on metformin quite sometime ago but denies any changes in or frequency of these bowel movements. Patient does report a recent trip to [place] otherwise denies any long car rides or trips and denies any recent illnesses or known ill contacts. Patient reports currently being free from any complaints other than pain to his upper lip. He underwent evaluation in the emergency department. Upon arrival vital signs showing blood pressure 126/70, heart rate 117, respiratory rate 20, temp 100.5 F, and SpO2 of 95% on room air. EKG was completed showing normal sinus rhythm at 91 bpm with T wave inversion in lead aVL otherwise normal findings. CT brain completed showing mild atrophy otherwise negative for acute intracranial process. Chest x-ray negative for acute cardiopulmonary process. Labs were completed and reviewed. CBC showing leukocytosis with WBC count of 16.6. Coagulation profile showing low PTT of 21.4. BMP showing hyponatremia with sodium of 130 and hypochloremia with chloride of 96. Blood glucose was 139. Magnesium slightly low at 1.6. Liver profile unremarkable. Troponin was negative at less than 0.012. Flu Elisha A, influenza B, RSV, and COVID were negative. Urinalysis negative for infection. Patient was admitted under our services at this time. Troponins were trended overnight all negative at less than 0.012 x 3 draws. D-dimer was completed and negative at 0.34. Echo showed EF 55-60%, no WMA. Nuclear stress test was negative for ischemia. Pt did have +orthostatic vitals which improved. Pt discharged home with PCp, cardiology f/u and a 30 day event monitor. I spent 34 minutes coordinating this discharge Patient Condition at Discharge: Good Plan - Discharge Summary New Discharge Prescriptions: New Acetaminophen Tab [Tylenol] 650 mg PO Q6HR PRN tab PRN Reason: Mild Pain Or Fever > 100.5 Continue lisinopriL [Zestril] 5 mg PO DAILY metFORMIN HCL ER [Glucophage XR] 500 mg PO W/SUPPER Multivitamins, Thera [Multivitamin (formulary)] 1 tab PO DAILY metFORMIN HCL ER [Glucophage XR] 1,000 mg PO W/BRKFST Rosuvastatin Calcium 5 mg PO HS Discharge Medication List lisinopriL [Zestril] 5 mg PO DAILY 09/01/14 [History] Multivitamins, Thera [Multivitamin (formulary)] 1 tab PO DAILY 09/21/23 [History] Rosuvastatin Calcium 5 mg PO HS 09/21/23 [History] metFORMIN HCL ER [Glucophage XR] 1,000 mg PO W/BRKFST 09/21/23 [History] metFORMIN HCL ER [Glucophage XR] 500 mg PO W/SUPPER 09/21/23 [History] Acetaminophen Tab [Tylenol] 650 mg PO Q6HR PRN tab 09/24/23 [Rx] Follow up Appointment(s)/Referral(s): Bib Simon MD [STAFF PHYSICIAN] - 10/20/23 3:45 pm Bennie Chung MD [Primary Care Provider] - 1-2 days Patient Instructions/Handouts: Hyponatremia (DC), Syncope (DC) Discharge Disposition: HOME SELF-CARE
--- NOTE | 2023-09-28 12:33 | CA ---
Lexiscan Nuclear Stress Test Report Name: Indio Levin Exam Date: 09/23/2023 09:50 Exam Location: [facility] Ht (in): 68 Wt (lb): 162 BSA: 1.87 Ordering Phys: Radha Dodson Referring Phys: PRIMITIVO,, Technologist: Gabe Price Age: 78 Gender: M : 1945 Procedure CPT: Indications: Reflex order-Stress test ICD-10 Codes: Patient History: Difficulty in breathing, hypertension, diabetes, hyperlipidemia and former smoker. Medications: Meds past 24 hrs: Pretest Chest Pain: STRESS TEST Lexiscan Protocol Exercise Duration (min:sec): 01:[address] Depressions (mm): Angina Score: 0 Newman Score: Resting HR (bpm): 71 Peak HR (bpm): 106 Resting BP (mmHg): 150 / 74 Peak BP (mmHg): 151 / 66 MPHR: 144 Target HR: 122 % MPHR: 74 METS: 1.0 Total Dose: Peak Dose: Atropine: Double Product: 45104 BP Response: Stress Termination: INFUSION COMPLETE Stress Symptoms: DIFFICULTY IN BREATHING Stress Summary: ECG ANALYSIS Resting ECG: Stress ECG: CONCLUSIONS Non-diagnostic stress test Dr. Bib Simon MD (Electronically Signed) Final Date: 28 Sep 2023 12:32
== END 2023-09-24 13:52 | disposition home or self-care (01) ==
LOC: EC 16:15 → 6NMEDSUR 20:01
PROVIDERS: ADMIT Internal Medicine; ATTEND Internal Medicine
DX: S09.90XA Unspecified injury of head, initial encounter (principal); W19.XXXA Unspecified fall, initial encounter; R42 Dizziness and giddiness; E87.1 Hypo-osmolality and hyponatremia; E11.9 Type 2 diabetes mellitus without complications; I10 Essential (primary) hypertension; E78.5 Hyperlipidemia, unspecified; D72.829 Elevated white blood cell count, unspecified; R50.9 Fever, unspecified; R00.0 Tachycardia, unspecified; Z79.84 Long term (current) use of oral hypoglycemic drugs; Z79.899 Other long term (current) drug therapy; Z80.42 Family history of malignant neoplasm of prostate; S01.511A Laceration without foreign body of lip, initial encounter; R56.9 Unspecified convulsions
CPT/HCPCS: 96361 ×2; 96365; 96366; 96372 ×3; 99285; 36415; 93005; 93017; 93306; 93270; 85379; 80053 ×2; 83605; 83735; 84484 ×2; 85025 ×2; 85610; 85730; 81003; 87040; 87636; 71046; 70450; 78452; 90715; G0378 ×4; A9500; J0696 ×2; J1650 ×3; J2785